=== PATIENT | female | born 1995 | race Caucasian/White ===

== ENCOUNTER 2021-09-15 21:10 | Emergency (ER) | payer BC, SELFPAY ==
[2021-09-15 21:33] VITALS: BP 160/84; PULSE 79; RESP 18; TEMP 36.7; O2SAT 100; BMI 41.5
--- NOTE | 2021-09-15 22:28 | CTR_ITS ---
PROCEDURE INFORMATION: Exam: CT Abdomen And Pelvis Without Contrast Exam date and time: 09/15/2021 11:30 PM Age: 25 years old Clinical indication: Abdominal pain; Localized; Right upper quadrant (ruq); Patient HX: C/O epigastric and ruq pain; Additional info: Ruq abd pain TECHNIQUE: Imaging protocol: Computed tomography of the abdomen and pelvis without contrast. Radiation optimization: All CT scans at this facility use at least one of these dose optimization techniques: automated exposure control; mA and/or kV adjustment per patient size (includes targeted exams where dose is matched to clinical indication); or iterative reconstruction. COMPARISON: [facility] OB > 14 weeks 04/19/2016 8:23 AM RADIATION DOSE METRICS: Total DLP (mGy-cm): 1200.03 FINDINGS: Liver: Normal. No mass. Gallbladder and bile ducts: Some subtle densities are seen in the gallbladder that could represent gallbladder sludge. Pancreas: Normal. No ductal dilation. Spleen: Normal. No splenomegaly. Adrenal glands: There is a 1.4 x 1.3 x 0.9 cm nodularity within the right adrenal gland. Kidneys and ureters: Normal. No hydronephrosis. Stomach and bowel: Unremarkable. No obstruction. No mucosal thickening. Appendix: No evidence of appendicitis. Intraperitoneal space: Unremarkable. No free air. No significant fluid collection. Vasculature: Unremarkable. No abdominal aortic aneurysm. Lymph nodes: Unremarkable. No enlarged lymph nodes. Urinary bladder: Unremarkable as visualized. Reproductive: The uterus is retroflexed. Bones/joints: Unremarkable. No acute fracture. Soft tissues: Unremarkable. CT/CT abdomen pelvis wo con [id number] IMPRESSION: 1. Subtle density seen in the gallbladder could represent gallbladder sludge. There are no inflammatory changes seen to suggest cholecystitis. 2. Right adrenal nodularity measuring up to 1.4 cm. Consider 12 month follow-up adrenal CT. (Reference: Joy) COMMENTS: Consistent with the [employer]'s Incidental Findings Committee white paper (J Am Theresa Radiol 2017): For any incidental adrenal lesion greater than or equal to 1 cm but less than or equal to 4 cm classified in this report as benign, likely benign, or containing fat (including classification as an adenoma or myelolipoma), no follow-up imaging is recommended per consensus recommendations based on imaging criteria. Further lab evaluation could be pursued if warranted based on clinical findings. REFERENCES: Joy CASTAÑEDA et al. Management of Incidental Adrenal Masses: A White Paper of the ACR Incidental Findings Committee. J Am Theresa Radiol. 2017;14(8):7439-7134.
--- NOTE | 2021-09-15 22:31 | W.ED.ABDPA2 ---
HPI - Abdominal Pain General: Chief Complaint: Abdominal Pain Stated Complaint: abd pain Time Seen by Provider: 09/15/21 21:59 Source: patient Mode of arrival: ambulatory Limitations: no limitations History of Present Illness: 25-year-old female states has been having right upper quadrant pain for the last week. States the pains been sharp in nature and much worse with eating. States pain is currently a 4 out of 10. She denies any vomiting or diarrhea she denies any fever. States it seems to be improved with rest. Denies any history of surgeries in the past Associated Symptoms: Denies chills, dysuria and fever(s) Review of Systems Const: Denies: fever(s), chills, body aches or change in appetite Eyes: Denies: blurry vision or eye discomfort ENMT: Denies: throat pain or dental pain Card: Denies: chest pain Resp: Denies: dyspnea GI: Reports: abdominal pain : Denies: dysuria Musc: Denies: neck pain or back pain Skin/Breast: Denies: rash Neuro: Denies: headache(s) Psych: Denies: depression Mihir/Lymph: Denies: easy bruising All/Imm: Denies: urticaria PFSH ED PFSH: Medical History GERD (gastroesophageal reflux disease) Hiatal hernia with gastroesophageal reflux Social History (Updated 09/15/21 @ 22:34 by Mark Henderson MD) Substance/Drug Use: never Physical Exam Const: COMMON NORMALS: no acute distress, patient oriented x3 and healthy appearing HENMT: COMMON NORMALS: normocephalic and atraumatic HEAD & SCALP: normocephalic and atraumatic Eye: COMMON NORMALS: Equal, round and reactive pupils present and EOMs intact bilaterally PUPIL: Yes Equal, round and reactive pupils present Neck/C-Spine: COMMON NORMALS: full ROM and supple Chest: COMMONS NORMALS: normal inspection of the chest and normal palpation of entire chest wall Resp: COMMON NORMALS: normal respiratory effort, No retractions, No use of accessory muscles and clear to auscultation bilaterally AUSCULTATION: clear to auscultation bilaterally Cardio: COMMON NORMALS: regular rate, regular rhythm and No murmurs present (Cardio) RATE: regular rate RHYTHM: regular rhythm GI: COMMON NORMALS: Normal to inspection, nondistended, normoactive bowel sounds present, Soft to palpation, non-tender and no masses PALPATION: Yes Soft to palpation and Yes Tenderness to palpation present (GI) Details: RUQ Extremity: COMMON NORMALS: normal to inspection and full ROM Neuro: COMMON NORMALS: patient oriented x3, moves all extremities and no focal motor deficits Psych: COMMON NORMALS: mental status grossly normal, Normal thought process present and cooperative THOUGHT PROCESS: Normal thought process present Skin: COMMON NORMALS: no rashes or lesions noted and no wounds GENERAL SKIN EXAM: no rashes or lesions noted Course Vital Signs: Vital signs: Vital Signs Temperature 98.1 F 09/15/21 21:33 Pulse Rate 79 09/15/21 21:33 Respiratory Rate 18 09/15/21 21:33 Blood Pressure 160/84 09/15/21 21:33 Pulse Oximetry 100 09/15/21 21:33 Oxygen Delivery Me thod 09/15/21 21:33 MDM - Abdominal Pain Medical Decision Making Patient presents here with abdominal pain has been going on for a week she has follow-up with surgery on Saturday CT shows no signs of cholecystitis blood work is normal her pain is improved she is stable for discharge she is return if worsening she understands agrees to plan. Lab Data : 09/15/21 23:00 09/15/21 23:00 Labs/Radiology: Radiology Impressions Abdomen/Pelvis CT 09/15/21 22:28 IMPRESSION: 1. Subtle density seen in the gallbladder could represent gallbladder sludge. There are no inflammatory changes seen to suggest cholecystitis. 2. Right adrenal nodularity measuring up to 1.4 cm. Consider 12 month follow-up adrenal CT. (Reference: Joy) COMMENTS: Consistent with the [employer]'s Incidental Findings Committee white paper (J Am Theresa Radiol 2017): For any incidental adrenal lesion greater than or equal to 1 cm but less than or equal to 4 cm classified in this report as benign, likely benign, or containing fat (including classification as an adenoma or myelolipoma), no follow-up imaging is recommended per consensus recommendations based on imaging criteria. Further lab evaluation could be pursued if warranted based on clinical findings. REFERENCES: Joy CASTAÑEDA et al. Management of Incidental Adrenal Masses: A White Paper of the ACR Incidental Findings Committee. J Am Theresa Radiol. 2017;14(8):2482-0666. Laboratory Results WBC 11.6 10^3/uL (4.0-10.0) H 09/15/21 23:00 RBC 4.25 10^6/uL (4.1-5.3) 09/15/21 23:00 Hgb 13.3 g/dL (11.5-15.3) 09/15/21 23:00 Hct 40.5 % (37.0-47.0) 09/15/21 23:00 MCV 95.3 fl (81-99) 09/15/21 23:00 MCH 31.3 pg (28.0-34.0) 09/15/21 23:00 MCHC 32.8 g/dL (30.0-36.0) 09/15/21 23:00 RDW 11.8 % (12.1-15.1) L 09/15/21 23:00 Plt Count 224 10^3/cmm (130-400) 09/15/21 23:00 MPV 10.2 fL (7.4-10.4) 09/15/21 23:00 Neut % (Auto) 76.7 % 09/15/21 23:00 Lymph % (Auto) 13.3 % 09/15/21 23:00 [place] % (Auto) 8.2 % 09/15/21 23:00 Eos % (Auto) 1.2 % 09/15/21 23:00 Baso % (Auto) 0.4 % 09/15/21 23:00 Neut # (Auto) 8.93 10^3/uL (1.8-7.7) H 09/15/21 23:00 Lymph # (Auto) 1.6 10^3/uL (0.8-4.8) 09/15/21 23:00 [place] # (Auto) 1.0 10^3/uL (0.2-0.9) H 09/15/21 23:00 Eos # (Auto) 0.1 10^3/uL (0.0-0.8) 09/15/21 23:00 Baso # (Auto) 0.1 10^3/uL (0.0-0.1) 09/15/21 23:00 Nucleated RBC % (auto) 0 % 09/15/21 23:00 Nucleated RBCs # 0.0 /100WBC 09/15/21 23:00 Sodium 138 mmol/L (136-145) 09/15/21 23:00 Potassium 3.7 mmol/L (3.5-5.1) 09/15/21 23:00 Chloride 104 mmol/L (98-107) 09/15/21 23:00 Carbon Dioxide 20 mmol/L (22-29) L 09/15/21 23:00 Anion Gap 17.7 (5-19) 09/15/21 23:00 BUN 8 mg/dL (6-20) 09/15/21 23:00 Creatinine 0.6 mg/dL (0.5-0.9) 09/15/21 23:00 GFR Calculation 120.8 mL/min (90-130) 09/15/21 23:00 Glucose 94 mg/dL (65-115) 09/15/21 23:00 Calculated Osmolality 284 mOsm/kg (285-295) L 09/15/21 23:00 Calcium 9.2 mg/dL (8.5-10.5) 09/15/21 23:00 Total Bilirubin 0.8 mg/dL (0.15-1.2) 09/15/21 23:00 AST 73 U/L (0-32) H 09/15/21 23:00 ALT 71 U/L (0-33) H 09/15/21 23:00 Alkaline Phosphatase 103 IU/L (35-105) 09/15/21 23:00 Total Protein 7.5 g/dL (6.6-8.7) 09/15/21 23:00 Albumin 4.3 g/dL (3.5-5.2) 09/15/21 23:00 Globulin 3.2 g/dL (1.3-4.6) 09/15/21 23:00 Lipase 18 U/L (13-60) 09/15/21 23:00 HCG, Qual Negative (Negative) 09/15/21 23:00 Discharge Plan Discharge Patient Disposition: Home Clinical Impression: Abdominal pain Condition: Stable Prescriptions: New hydrocodone-acetaminophen 5-325 mg tablet 1 tab PO Q6H PRN (Reason: pain) Qty: 14 0RF ondansetron 4 mg tablet,disintegrating 4 mg PO Q6H PRN (Reason: nausea and vomiting) Qty: 14 0RF No Action pantoprazole 40 mg tablet,delayed release (DR/EC) 40 mg PO DAILY Qty: 30 1RF Discharge Orders: Discharge ED (Routine); Ordered 09/16/21 Ordered By: Mark Henderson Discharge Diet: Advance as tolerated Discharge Activity: Resume usual activity Patient Instructions: Abdominal Pain (ED), Opioid Safety Coding Level of Care Code 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
[2021-09-15 23:00] VITALS: BP 123/90; PULSE 64; RESP 12; O2SAT 100
[2021-09-15 23:08] LABS: Basophils # 0.1 10^3/uL (0.0-0.1); Basophils % 0.4 %; Eosinophils # 0.1 10^3/uL (0.0-0.8); Eosinophils % 1.2 %; Hematocrit 40.5 % (37.0-47.0); Hemoglobin 13.3 g/dL (11.5-15.3); Lymphocytes # 1.6 10^3/uL (0.8-4.8); Lymphocytes % 13.3 %; Mean Corpuscular HGB Conc 32.8 g/dL (30.0-36.0); Mean Corpuscular Hemoglobin 31.3 pg (28.0-34.0); Mean Corpuscular Volume 95.3 fl (81-99); Mean Platelet Volume 10.2 fL (7.4-10.4); Monocytes % 8.2 %; Neutrophils # 8.93 10^3/uL (1.8-7.7); Neutrophils % 76.7 %; Nucleated Red Blood Cells % 0 %; Platelet Count 224 10^3/cmm (130-400); Red Blood Count 4.25 10^6/uL (4.1-5.3); Red Cell Distribution Width 11.8 % (12.1-15.1); White Blood Count 11.6 10^3/uL (4.0-10.0)
[2021-09-15] MEDS: sodium chloride 0.9% 1,000 ML 999 ML IV (23:16)
[2021-09-15] MEDS: morphine 4 mg/mL SDV 1 mL IVP (23:17)
[2021-09-15] MEDS: ondansetron 2 mg/ML SDV 2 mL 4 MG IVP (23:17)
[2021-09-15 23:22] LABS: HCG, Serum Qual Negative (Negative)
[2021-09-15 23:35] LABS: Alanine Aminotransferase 71 U/L (0-33); Albumin Level 4.3 g/dL (3.5-5.2); Alkaline Phosphatase 103 IU/L (35-105); Anion Gap 17.7 (5-19); Aspartate Amino Transferase 73 U/L (0-32); Blood Urea Nitrogen 8 mg/dL (6-20); Calcium 9.2 mg/dL (8.5-10.5); Carbon Dioxide 20 mmol/L (22-29); Chloride 104 mmol/L (98-107); Globulin 3.2 g/dL (1.3-4.6); Glomerular Filtration Rate 120.8 mL/min (90-130); Glucose 94 mg/dL (65-115); Lipase 18 U/L (13-60); Osmolality Calculated 284 mOsm/kg (285-295); Potassium 3.7 mmol/L (3.5-5.1); Sodium 138 mmol/L (136-145); Total Bilirubin 0.8 mg/dL (0.15-1.2); Total Protein 7.5 g/dL (6.6-8.7)
[2021-09-16 00:30] VITALS: BP 143/82; PULSE 60; RESP 15; O2SAT 100
[2021-09-16 00:55] VITALS: BP 143/82; PULSE 71; RESP 18; O2SAT 100
== END 2021-09-16 00:48 | disposition home or self-care (01) ==
PROVIDERS: Emergency Provider Emergency Medicine
DX: R10.11 Right upper quadrant pain (principal)
CPT/HCPCS: 74176; 80053; 83690; 84703; 85025; 96361; 96374; 96375; 99285; J2270; J2405; J7030

== ENCOUNTER → 2022-03-06 16:51 | Outpatient (BNVA) | payer BC, SELFPAY | PROVIDERS: Visit Provider Nurse Practitioner Family | DX: R39.9 Unspecified symptoms and signs involving the genitourinary system (principal); R30.0 Dysuria | CPT/HCPCS: 81000 ==